=== PATIENT | female | born 1975 | race Caucasian/White ===

== ENCOUNTER 2016-09-06 05:06 | Day surgery (SDC) | payer MEDICAID ==
[~2016-09-06] VITALS: Ht 157.5 cm; Wt 84.8 kg
[~2016-09-06 05:06] MED LIST: FLAGYL500 MG PO; HYDROCHLOROTHIA25 MG PO; HYDROCODONE-APA1 TAB PO; IBUPROFEN600 MG PO; LEVAQUIN500 MG PO; OMEPRAZOLE20 M1 PO; PERCOCET 10/3251 TA1 PO; PRINIVIL20 MG PO; PROAIR HFA8.5 GM INH; TENORMIN25 MG PO; XELODA500 MG PO; ZESTRIL20 MG PO; ZOFRAN ODT4 MG/UDTAB PO
[2016-09-06 06:03] VITALS: BP 110/72; Ht 157.5 cm; Wt 84.8 kg
[2016-09-06 06:07] LABS: BASOPHILS 0.4 % (0.0-2.0); EOSINOPHILS 3.4 % (0-7); HEMATOCRIT 23.2 % (36.0-48.0); IMMATURE GRANULOCYTES 1.2 % (0-5); LYMPHOCYTES 14.2 % (15-50); MCH 35.4 pg (26.0-34.0); MCHC 31.9 g/dL (31.0-37.0); MEAN PLATELET VOLUME 10.7 fL (7.4-10.4); MONOCYTES 5.6 % (2-11); NEUTROPHILS 75.2 % (40-80); RBC 2.09 10x6/uL (4.00-5.40); RDW 22.5 % (11.5-14.5); WBC 9.2 10x3/uL (4.8-10.8)
[2016-09-06 06:23] LABS: HEMOGLOBIN 7.4 g/dL (12-16); PLATELET COUNT 342 10x3/uL (130-400)
--- NOTE | 2016-09-06 06:36 | NUR ---
0620-critical hgb of 7.4 called to OPS called OR to let them know and dr walters made aware, no new orders received
[2016-09-06 06:39] LABS: APTT 36.4 SECONDS (22.8-39.4); INR 1.1 (0.85-1.17); PROTIME 14.1 SECONDS (11.6-15.0)
[2016-09-06 06:40] LABS: ANION GAP 17.4 mmol/L (8-16); CALCIUM 8.4 mg/dL (8.5-10.1); CARBON DIOXIDE 24.6 mmol/L (21.0-32.0); CREATININE - SERUM 1.1 mg/dL (0.6-1.3)
[2016-09-06] MEDS ORDERED: PERCOCET 10/3251 TA1 PO (08:17)
--- NOTE | 2016-09-06 11:52 | NUR ---
1145-DISCHAGE INSTRUCTIONS GIVEN WITH WRITTEN INSTRUCTIONS. PT. ESCORTED WHEELCHAIR TO PERSONAL CAR, LEFT WITH FAMILY DRIVING.
--- NOTE | 2016-10-04 14:51 | OP ---
PATIENT NAME: PETER STACY MEDICAL RECORD: [id number] :75 LOCATION:D.OPS ADMISSION DATE: SURGEON: CHARLOTTE ACEVEDO MD DATE OF OPERATION: 09/06/2016 PREOPERATIVE DIAGNOSES: 1. Metastatic breast cancer. 2. Tobacco dependent syndrome. 3. Hypertension. POSTOPERATIVE DIAGNOSES: 1. Metastatic breast cancer. 2. Tobacco dependent syndrome. 3. Hypertension. PROCEDURES: 1. Left subclavian vein port placement. 2. Fluoroscopic interpretation. SURGEON: Charlotte Acevedo MD. REPORT OF PROCEDURE: The patient's left chest was prepped and draped in sterile fashion and needle was used to cannulate the left subclavian vein. The guidewire was advanced with ease. Fluoro was used to note that the wire was in good position in the venous system. A skin incision was made on the left superior lateral chest and a subcutaneous pouch was made overlying the pectoral fascia. The catheter was tunneled between this pouch and the wire exit site. The port was then sutured to the pectoral fascia using interrupted 2-0 Prolene times 2. The catheter was cut with a beveled tip at 28 cm. The dilator trocar device was then placed over the wire and the wire and dilator were removed. The catheter tip was advanced through the trocar with ease and the trocar was removed. The fluoro was used to note that the catheter tip was resting in good position in the superior vena cava. The catheter aspirated nonpulsatile dark blood and flushed easily with heparinized saline. The subcutaneous tissues were reapproximated with interrupted 3-0 Vicryl and the skin was closed with running subcutaneous 5-0 Monocryl. COMPLICATIONS: None. CONDITION: Stable. ANESTHESIA: General endotracheal. BLOOD LOSS: Minimal. TRANSINT:[id number] Voice Confirmation ID: [id number] DOCUMENT ID: [id number] OPERATIVE REPORT [id number] PETER STACY CHARLOTTE ACEVEDO MD at 1451 CC: LOUIS WALTON MD [id number] DICTATION DATE: 09/06/16 0821 ORDER CALLER: 09/06/16 0926 [facility] 09/06/[address] [address]
== END 2016-09-06 11:45 | disposition home or self-care (01) ==
LOC: D.OPS 05:06 → D.PAN 07:30 → D.OPS 10:00
PROVIDERS: Anesthesiology; Surgery
DX: C50.919 Malignant neoplasm of unspecified site of unspecified female breast (principal); C79.9 Secondary malignant neoplasm of unspecified site; F17.200 Nicotine dependence, unspecified, uncomplicated; I10 Essential (primary) hypertension

== ENCOUNTER 2016-10-25 11:08 | Outpatient (CLI) | payer MEDICAID ==
[~2016-10-25] VITALS: Ht 157.5 cm; Wt 73.2 kg
[2016-10-25] MEDS ORDERED: NEURONTIN 300300 MG PO (11:10)
[2016-10-25 12:02] VITALS: BP 86/51; Ht 157.5 cm; Wt 73.2 kg
--- NOTE | 2016-10-25 19:19 | NUR ---
PORT FLUSHED WITH HEPRIN AND SALINE, NEEDLE REMOVED
== END 2016-10-25 19:00 | disposition home or self-care (01) ==
LOC: D.OPS 11:08
DX: R79.89 Other specified abnormal findings of blood chemistry (principal)

== ENCOUNTER 2016-11-01 11:40 | Inpatient (IN) | payer MEDICAID ==
[~2016-11-01] VITALS: Ht 157.5 cm; Wt 73.0 kg
[~2016-11-01 11:40] MED LIST changes: +NEURONTIN 300300 MG PO
--- NOTE | 2016-11-01 12:16 | NUR ---
PT REC'D TO ROOM VIA WC. ABLE TO AMBULATE FROM WC TO BED WITHOUT DIFFICULTY. SHE IS VERY WEAK HOWEVER. HER SKIN IS HOT, DRY, AND PEELING. 2L O2 APPLIED VIA NC. VSS. AAOX4. NO CURRENT COMPLAINTS OF PAIN. L CHEST PORT UNACCESSED AT THE MOMENT. RAVINDER, LINUX ENGINEER, AT BEDSIDE ATTEMPTING TO DO SO. BED LOW, CALL LIGHT IN REACH, DENIES NEEDS. CPOC.
[2016-11-01 12:18] VITALS: BP 100/57; BMI 29.5
--- NOTE | 2016-11-01 12:26 | NUR ---
PT AOX4 RESP EVEN AND NONLABORED PT ARRIVED VIA WHEELCHAIR WITH FAMILY PRESENT. IV TO LEFT CHEST PORT PATENT AND INTACT AT THIS TIME. PT COMPLAINS OF PAIN OF 9 OF 10 ON NUMERICAL SCALE AT THIS TIME IN BACK. BED AT LOWEST SETTING SRX2 CALL LIGHT WITHIN REACH WILL CONTINUE TO MONITOR. PT HAS SORES ON BACK FROM SCRATCHING.
--- NOTE | 2016-11-01 12:31 | NUR ---
20 GUAGE AND 1INCH NEEDLE PLACED IN L CHEST PORT BY RAVINDER, PRESS FEEDER. UNABLE TO GET BLOOD RETURN, BUT PT STATES THAT YOU CAN NOT DRAW BLOOD FROM HER PORT AND THAT IT'S ALWAYS BEEN LIKE THAT. IVF STARTED PER MAR. BED LOW, CALL LIGHT IN REACH, DENIES NEEDS. CPOC.
--- NOTE | 2016-11-01 12:36 | NUR ---
LEFT INFUSAPORT ACCESSED WITH 20GA X 1 IN NEEDLE. FLUSHED EASILY WITH NO COMPLAINTS. DOES NOT DRAW BLOOD-PT STATES THAT IT DOES NOT DRAW BLOOD EVEN AT OFFICE. DRESSED PER PROTOCOL WITH BIOPATCH AND OCCULSIVE DRESSING. CALL LIGHT IN REACH
[2016-11-01 16:00] VITALS: BP 78/46
--- NOTE | 2016-11-01 16:20 | NUR ---
ALERTED BY DIVINE REYNOSO, THAT BP WAS CURRENTLY 78/46. BP RECHECKED AND WAS 100/57. AREA AROUND L CHEST PORT EDEMATOUS. PORT DEACCESSED AND EXPRESSED A SMALL AMOUNT OF SEROUS FLUID. PRESSURE AND DRESSING APPLIED. PARISH GIBBONS IV ACCESS NURSE, CALLED AND AT BEDSIDE.
--- NOTE | 2016-11-01 16:36 | NUR ---
SHAI, RN IV ACCESS NURSE, STATED THAT THE PT WAS TOO EDMATOUS AND TENDER TO TRY AND REACCESS PORT CURRENTLY. X2 ATTEMPT FOR PERIPHERAL ACCESS. UNSUCCESSFUL. EXPLAINED TO PT THAT I WOULD GIVE HER A BREAK AND LET HER REST BEFORE TRYING AGAIN, BUT WE WOULD NEED ACCESS FOR IVF. PT STATES SHE UNDERSTANDS AND APPRECIATES ME LETTING HER WAIT. BED LOW, CALL LIGHT IN REACH, DENIES NEEDS. CPOC.
--- NOTE | 2016-11-01 17:42 | NUR ---
20GUAGE IV INSERTED INTO LEFT UPPER ARM. X1 ATTEMPT. IV INFUSING. BED LOW, CALL LIGHT IN REACH, DENIES NEEDS. CPOC.
[2016-11-01 19:21] LABS: CALCIUM 8.2 mg/dL (8.5-10.1); CARBON DIOXIDE 19.8 mmol/L (21.0-32.0); CREATININE - SERUM 1.8 mg/dL (0.6-1.3); POTASSIUM - SERUM 4.8 mmol/L (3.5-5.1)
[2016-11-01 20:00] VITALS: BP 104/58
--- NOTE | 2016-11-01 23:15 | NUR ---
LAB CALLED TO CONFIRM BLOOD IS READY.
--- NOTE | 2016-11-02 02:15 | NUR ---
WALKED INTO THE PATIENT'S ROOM AFTER HEARING THE PATIENT YELLING "HELP". THE PATIENT STATED THAT SHE "HAD A DIZZY SPELL AND FELL". THE PATIENT WAS SITTING IN THE FLOOR 1/2 WAY INTO THE SHOWER. SHE STATED THAT SHE HIT HER HEAD WHEN SHE FELL BACK INTO THE SHOWER. THE PATIENT HAS A SMALL RED DAYA ON THE BACK OF HER HEAD. PARISH MARTINEZ AND I ASSISTED THE PATIENT TO HER FEET AND THEN ONTO THE TOILET. AFTER, WE ASSISTED THE PATIENT BACK TO HER BED. THE PATIENT'S VITALS ARE STABLE. THE PATIENT IS ALERT AND ORIENTED. THE PATIENT'S BED IS IN THE LOWEST POSITION, HER CALL LIGHT IS WITHIN REACH, AND HER BED ALARM IS ON. I EXPLAINED TO THE PATIENT THAT HER BED ALARM IS ON AND THAT SHE NEEDS TO PRESS HER CALL LIGHT AND WE WILL ASSIST HER TO THE RESTROOM. THE PATIENT VERBALIZES UNDERSTANDING. I ENCOURAGED THE PATIENT TO CALL IF SHE HAS NEEDS.
--- NOTE | 2016-11-02 02:30 | NUR ---
I PAGED DR. WALKER (SALESPERSON SURGICAL APPLIANCES FOR DR. WALTON) TO NOTIFY HER THAT THE PATIENT HAD FALLEN IN THE BATHROOM. I ALSO INFORMED DR. WALKER THAT THE PATIENT IS ALERT AND ORIENTED.
--- NOTE | 2016-11-02 07:15 | NUR ---
REPORT RECEIVED FROM CONTENT WRITER NURSE. CALL LIGHT IN REACH.
[2016-11-02 07:16] LABS: ANION GAP 16.1 mmol/L (8-16); CALCIUM 8.2 mg/dL (8.5-10.1); CREATININE - SERUM 1.4 mg/dL (0.6-1.3); POTASSIUM - SERUM 4.1 mmol/L (3.5-5.1)
--- NOTE | 2016-11-02 07:18 | NUR ---
LEFT A MESSAGE FOR CAROLE () TO CALL MONSERRAT OR RYANNE IN REGARDS TO PETER.
[2016-11-02 08:06] VITALS: BP 83/47
--- NOTE | 2016-11-02 08:20 | NUR ---
UPON ENTERING ROOM PT ASLEEP IN SUPINE POSITION, NO VISABLE SIGNS OF PAIN OR DISCOMFORT NOTED. BED IN LOW POSITION AND CALL LIGHT WITHIN REACH. WILL CONTINUE TO MONITOR.
--- NOTE | 2016-11-02 10:07 | NUR ---
ASSESSMENT COMPLETED. DENIES NEEDS AT THIS TIME. CALL LIGHT IN REACH. WILL CONTINUE WITH PLAN OF CARE.
--- NOTE | 2016-11-02 10:56 | NUR ---
Patient Name: PETER STACY Admission Status: Elective Accout number: [id number] Admission Date: 11-01-2016 : 1975 Admission Diagnosis: Attending: JADA Current LOS: 1 Anticipated DC Date: Planned Disposition: Home with Home Health Primary Insurance: [facility] [employer] Discharge Planning Comments: CM MET WITH PATIENT AND FAMILY REGARDING D/C NEEDS AND PLANS. PATIENT STATED SHE LIVES WITH HER SPOUSE (CAROLE) AND HE WILL DRIVE HER HOME AT DISCHARGE. PATIENT STATED SHE HAS 4 STEPS W/RAILS TO ENTER HER HOME AND NO STAIRS INSIDE. PATIENTS PCP IS DR. RONQUILLO AND PHARMACY IS [facility] [address]. PATIENT HAS BEEN INDEPENDENT WITH HER CARE IN THE PAST. PATIENT REQUESTED HOME HEALTH/PT AND SIGNED THE [facility]AM FORM WITH SERA. CM WILL CONTINUE TO FOLLOW PATIENT WITH D/C NEEDS AND PLANS. PCP [facility] ([facility]) [phone] CAROLE ([phone]) SPOUSE Rolled Glass Crosscutter: Apurva Hendricks How many steps to enter\exit or inside your home? 4 W/RAILS 0 * PCP DR. RONQUILLO 0 * Pharmacy [facility] [address] 0 * Preadmission Environment Home with Family 0 * ADLs Partial Dependent 0 * Partial ADLs (Assistance needed) Ambulation Bathing Dressing Transfers 0 * Equipment None 0 * List name and contact numbers for known caregivers / representatives who currently or will assist patient after discharge: CAROLE (SPOUSE) [phone] 0 * Community resources currently utilized None 0 * Additional services required to return to the preadmission environment? Yes 0 * Can the patient safely return to the preadmission environment? Yes 0 * Has this patient been hospitalized within the prior 30 days at any hospital? No 0 Grand Total: 0
--- NOTE | 2016-11-02 11:15 | NUR ---
MORPHINE SIVP FOR C/O PAIN.
[2016-11-02 12:48] VITALS: BP 91/55
--- NOTE | 2016-11-02 13:22 | NUR ---
FAMILY IN ROOM. NO NEEDS VOICED AT THIS TIME. CALL LIGHT IN REACH.
[2016-11-02 14:13] VITALS: Ht 157.5 cm; Wt 73.0 kg
--- NOTE | 2016-11-02 14:32 | NUR ---
REQUESTING PAIN MEDS BUT TOO SOON FOR ADMINISTRATION.
--- NOTE | 2016-11-02 15:27 | NUR ---
C/O PAIN OF 10 SO MORPHINE 6 MG SIVP. CALL LIGHT IN REACH.
[2016-11-02 16:02] VITALS: BP 81/46
--- NOTE | 2016-11-02 17:20 | NUR ---
RESTING WITH EYES CLOSED. RESP EVEN AND UNLABORED. CALL LIGHT IN REACH.
--- NOTE | 2016-11-02 19:20 | NUR ---
PATIENT RESTING IN BED WITH FAMILY AT BEDSIDE. PATIENT REQUESTED PEPCID. I INFORMED THE PATIENT THAT THE DOCTOR HAS BEEN PAGED BY DOREEN PEARL. PATIENT DENIES OTHER NEEDS AT THIS TIME. BED IN LOWEST POSITION, CALL LIGHT WITHIN REACH, AND BED ALARM ON. ENCOURAGED THE PATIENT TO CALL IF SHE HAS FURTHER NEEDS.
[2016-11-02 20:00] VITALS: BP 84/45
[2016-11-03] VITALS (20 sets, daily range): BP systolic 74–123; BP diastolic 34–84
--- NOTE | 2016-11-03 01:30 | NUR ---
PATIENT ACCIDENTALLY PULLED HER IV OUT WHILE USING THE RESTROOM. PARISH ANDRE RESITED THE IV IN THE PATIENT'S RIGHT WRIST ON THE FIRST ATTEMPT WITH A 22G.
[2016-11-03 05:54] LABS: BASOPHILS 0.2 % (0-2); EOSINOPHILS 0.4 % (0-7); HEMATOCRIT 30.5 % (36.0-48.0); HEMOGLOBIN 10.2 g/dL (12-16); IMMATURE GRANULOCYTES 0.6 % (0-5); LYMPHOCYTES 12.4 % (15-50); MCHC 33.4 g/dL (31.0-37.0); MCV 101.7 fL (80.0-100.0); MEAN PLATELET VOLUME 10.8 fL (7.4-10.4); MONOCYTES 6.7 % (2-11); NEUTROPHILS 79.7 % (40-80); RDW 24.3 % (11.5-14.5); WBC 10.9 10x3/uL (4.8-10.8)
[2016-11-03 06:08] LABS: PLATELET COUNT 112 10x3/uL (130-400)
[2016-11-03 06:25] LABS: ANION GAP 15.2 mmol/L (8-16); CALCIUM 8.1 mg/dL (8.5-10.1); CARBON DIOXIDE 23.7 mmol/L (21.0-32.0); CREATININE - SERUM 1.2 mg/dL (0.6-1.3); POTASSIUM - SERUM 3.9 mmol/L (3.5-5.1); PROTEIN - SERUM 5.6 g/dL (6.4-8.2)
--- NOTE | 2016-11-03 07:30 | NUR ---
AWAKE AND ALERT AT THIS TIME. IV TO RIGHT WRIST PATENT AND INFUSING WITHOUT S/S OF INFILTRATION. CHEST PORT TO LEFT CHEST WALL NOT ACCESSED. EXPLAINED TO PT THAT HER CHEST PORT WOULD HAVE TO BE ACCESSED FOR CHEMO ADMINISTRATION. PT VERBALIZED UNDERSTANDING. PT ALSO STATES, "I JUST DO NOT FEEL WELL TODAY. I HAVE MY GOOD DAYS AND MY BAD DAYS." BED ALARM REMAINS ON WITH SRX2 AND BED IN LOWEST POSITIN WITH WHEELS LOCKED. CALL LIGHT IN REACH, WILL CONTINUE WITH PLAN OF CARE.
--- NOTE | 2016-11-03 08:08 | NUR ---
PORT ACCESS-LEFT CHEST WALL INFUSAPORT ACCESSED AFTER STERILE PREP WITH CHCLORAPREP. 1 1/2 NEEDLE INITIALLY USED, NEEDLE PROTRUDING FROM CHEST OVER 1/2 INCH, FLUSHED AND REMOVED. REACCESSED WITH 1 INCH BELTRAN, FLUSHES EASILY, NO BLOOD RETURN. PATIENT STATES SHE HAS " NEVER HAD BLOOD RETURN FROM PORT.' SITE DRESSED WITH STATLOCK, BIOPATCH AND TEGADERM DRESSING. SHAI RUFF RN
--- NOTE | 2016-11-03 10:10 | NUR ---
PRE-MEDICATIONS ADMINISTERED FOR CHEMO ADMINISTRATION. PT STATES THAT SHE CAN TASTE THE SALINE WHEN HER LEFT CHEST PORT IS FLUSHED SHE STATES THAT HER PORT NEVER DRAWS BACK BLOOD. CALL LIGHT IN REACH AND YELLOW CHEMO CONTAINER AT BEDSIDE. BED ALARM ON. WILL CONTINUE WITH PLAN OF CARE.
--- NOTE | 2016-11-03 10:55 | NUR ---
TAXOL CHEMOTHERAPY INITIATED PER ORDER AND WITNESSED BY PARISH CASTELLON. LEFT CHEST PORT REMAINS PATENT WITH 19G 1 INCH BELTRAN NEEDLE. VITAL SIGNS TEMP 97.3 TEMPORALLY, BP 81/44, PULSE 95 RESPIRATIONS 97% ON ROOM AIR. PT STATES THAT SHE CAN TASTE SALINE FLUSH WHEN LEFT CHEST PORT IS FLUSHED DUE TO PORT UNABLE TO DRAW BLOOD RETURN.
--- NOTE | 2016-11-03 11:15 | NUR ---
VITAL SIGNS REMAIN STABLE WITH CHEMO ADMINISTRATION. PORT FLUSHED WITH NORMAL SALINE AND PT REPORTED THAT SHE, "TASTED IT." RESUMED IV CHEMO INFUSION PER ORDER.
--- NOTE | 2016-11-03 11:30 | NUR ---
VITAL SIGNS REMAIN STABLE. FAMILT AT PT'S BEDSIDE. PORT REMAINS PATENT WITH BELTRAN NEEDLE INTACT. BED ALARM ON AND CALL LIGHT IN REACH, WILL CONTINUE WITH PLAN OF CARE.
--- NOTE | 2016-11-03 11:45 | NUR ---
VITAL SIGNS REMAIN STABLE. PORT SITE REMAINS PATENT WITH PT ABLE TO TASTE SALINE WHEN IT IS FLUSHED. CALL LIGHT IN REACH, WILL CONTINUE WITH PLAN OF CARE.
--- NOTE | 2016-11-03 12:30 | NUR ---
AWAKE AND ALERT WITH FAMILY AT BEDSIDE. ASSISTED PT TO BATHROOM WHERE SHE VOIDED DARK, CONCENTRATED URINE WITHOUT DIFFICULTY. ASSISTED BACK TO BED WITH BED ALARM ON. WILL CONTINUE WITH PLAN OF CARE.
--- NOTE | 2016-11-03 13:40 | NUR ---
TAXOL INFUSION COMPLETE AT THIS TIME. VITAL SIGNS REMAIN STABLE. FAMILY AT BEDSIDE. WILL CONTINUE WITH PLAN OF CARE.
--- NOTE | 2016-11-03 13:50 | NUR ---
IV INFUSION OF GEMZAR STARTED AT THIS TIME AND WITNESSED BY PARISH RICE. LEFT CHEST PORT REMAINS PATENT AND PT IS ABLE TO TASTE AND SMELL SALINE FLUSH. FAMILY REMAINS AT BEDSIDE. CALL LIGHT IN REACH, WILL CONTINUE WITH PLAN OF CARE.
--- NOTE | 2016-11-03 14:20 | NUR ---
IV GEMZAR TRANSFUSION COMPLETE AT THIS TIME. FAMILY REMAINS AT BEDSIDE. CALL LIGHT IN REACH, WILL CONTINUE WITH PLAN OF CARE.
[2016-11-04] VITALS: BP 94/59
--- NOTE | 2016-11-04 03:38 | NUR ---
ASSESSED AT THE BEGINNING OF THE SHIFT. PT IS ALERT AND ORIENTED, ABLE TO VERBALIZE NEEDS. SHE SLEPT QUIET A BIT DURING THE FIRST OF THE SHIFT. SHE CALLS FOR ASSIST TO GO TO THE BATHROOM AND IS ABLE TO TURN AND REPOSITION FOR COMFORT AND SKIN CARE. THERE IS A PORT FOR HEMO AND SHE HAS RECEIVED PAIN MEDS ORDERED AND ASKED FOR. THE BED IS LOW, RAILS UP X'S 2 WITH THE CALL LIGHT AT HAND AND WHITE BED ALARM.
[2016-11-04 04:00] VITALS: BP 102/50
--- NOTE | 2016-11-04 08:05 | NUR ---
AWAKE AND ALERT AT THIS TIME. PAIN 8/10, BUT PAIN MEDICATION NOT AVAILABLE UNTIL 9:30AM. BED ALARM ON AND CALL LIGHT IN REACH, WILL CONTINUE WITH PLAN OF CARE.
--- NOTE | 2016-11-04 09:07 | NUR ---
PRN MORPHINE ADMINISTERED AT THIS TIME FOR PAIN 9/10 GENERALIZED. BED ALARM REMAINS ON. CALL LIGHT IN REACH, WILL CONTINUE WITH PLAN OF CARE.
[2016-11-04 09:19] VITALS: BP 91/60
--- NOTE | 2016-11-04 12:09 | NUR ---
NUTRITION MONITORING & EVAL CHART REVIEWED, PT VISIT. TOLERATING REG DIET, ~25% INTAKE BREAKFAST. WILL HONOR FOOD PREFERENCES, MONITOR PO INTAKE. RD FOLLOWING
[2016-11-04 12:45] VITALS: BP 104/64
--- NOTE | 2016-11-04 13:09 | NUR ---
PRN MORPHINE ADMINISTERED PER ORDER FOR PAIN 02/12. PT IS EXPERIENCING EXTENSIVE NAUSEA WITHOUT EMESIS AND DOES NOT HAVE AN APPETITE. EXPLAINED TO PT THAT THIS COULD BE DUE TO HER CHEMO TREATMENT THAT SHE RECEIVED YESTERDAY. PT VERBALIZED UNDERSTANDING. CALL LIGHT IN REACH, WILL CONTINUE WITH PLAN OF CARE.
[2016-11-04 16:45] VITALS: BP 90/62
[2016-11-04 20:00] VITALS: BP 98/65
--- NOTE | 2016-11-05 03:38 | NUR ---
ASSESSED AT THE BEGINNING OF THE SHIFT. LOTS OF FAMILY WERE IN THE ROOM AND SHE WAS TIRED. SHE HAS BEEN COMPLAINING ABOUT THE FISH MOST OF THE SHIFT. IT IS DRAINING DARK BROWN URINE AND SHE STATED IT MADE HER FEEL LIKE SHE NEEDED TO VOID. WE HAVE BEEN MAKING SURE THE CATH IS DRAINING WELL AND IT IS. SHE SEEMS TO BE HURING MORE AND JUST PLAIN FEELING BAD TONIGHT. SHE IS GETTING HER PAIN MEDS ORDERED BUT IT IS NOT HOLDING HER. WILL DISCUSS WITH AM NURSE ABOUT ASKING MD FOR SOMETHING FOR ANXIETY. THE BED IS LOW, RAILS UP X'S 2 WITH THE CALL LIGHT AT HAND.
[2016-11-05 04:00] VITALS: BP 106/62
[2016-11-05 05:47] LABS: ALBUMIN 1.9 g/dL (3.4-5.0); BILIRUBIN - TOTAL 8.9 mg/dL (0.2-1.3); CALCIUM 7.6 mg/dL (8.5-10.1); CARBON DIOXIDE 28.7 mmol/L (21.0-32.0); CREATININE - SERUM 1.4 mg/dL (0.6-1.3); PROTEIN - SERUM 5.6 g/dL (6.4-8.2)
[2016-11-05 06:00] LABS: ANION GAP 15.9 mmol/L (8-16); POTASSIUM - SERUM 4.6 mmol/L (3.5-5.1)
--- NOTE | 2016-11-05 07:30 | NUR ---
ASSESSMENT COMPLETE. L PORT PATENT. SODIUM BICARB INFUSING AT 85 CC/HR VIA PUMP. REFUSING TO WEAR SCD'S. SCABBED AREAS NOTED TO BACK. FISH PATENT DRAINING BRIAN COLORED URINE. COMPLAINING OF ABDOMINAL PAIN. REFUSING TO TAKE ANYMORE MORPHINE. STATES THAT MORPHINE IS MAKING HER SHAKY AND FEELING FUNNY. BED ALARM IN USE.
[2016-11-05 07:49] VITALS: BP 107/64
--- NOTE | 2016-11-05 09:00 | NUR ---
BEGAN VOMITING CLEAR EMESIS AFTER TAKING PO PEPCID. TOO SOON TO GIVE NEXT DOSE OF ZOFRAN.
--- NOTE | 2016-11-05 10:30 | NUR ---
FISH CATHETER REMOVED. CATHETER TIP INTACT. WANTING TO GO TO BATHROOM TO TRY TO VOID. COMPLAINING OF DIZZINESS WITH STANDING. PLACED ON BEDSIDE COMMODE WITH STAFF AT BEDSIDE.
[2016-11-05 12:18] VITALS: BP 91/56
--- NOTE | 2016-11-05 12:38 | NUR ---
COMPLAINING OF ABDOMOINAL PAIN. DILAUDID 1 MG AND ZOFRAN 8 MG GIVEN SLOW IVP. VOIDED 100 CC'S OF BRIAN COLORED URINE. COMPLAINING OF BURNING WITH URINATION.
--- NOTE | 2016-11-05 13:30 | NUR ---
VISITING WITH FAMILY. RESTING QUIETLY IN BED AT THIS TIME.
[2016-11-05 14:43] VITALS: BP 102/68
--- NOTE | 2016-11-05 15:00 | NUR ---
COMPLAINING OF FEELING JITTERY AFTER DILAUDID. BED ALARM IN USE. NO CHANGES NOTED AT PRESENT.
--- NOTE | 2016-11-05 17:30 | NUR ---
RESTING QUIETLY WITH EYES CLOSED. RESP EVEN,NONLABORED. FAMILY AT BEDSIDE.
--- NOTE | 2016-11-05 19:00 | NUR ---
PATIENT SLEEPING ON LEFT SIDE. HOB 10 DEGREES. RR EVEN AND UNLABORED. 0 S/S OF DISTRESS. LEFT PORT PATENT WITH DRESSING CDI. B/A ON. FAMILY AT BEDSIDE.
[2016-11-05 20:00] VITALS: BP 117/79
--- NOTE | 2016-11-05 22:05 | NUR ---
PATIENT STATED SHE IS TOO NAUSEATED TO TAKE PO PEPCID. RETURNED PEPCID AND GAVE ZOFRAN PER ORDER.
[2016-11-06] VITALS: BP 98/59
--- NOTE | 2016-11-06 00:30 | NUR ---
PATIENT KEEPS STATING THAT SHE DOES NOT "FEEL GOOD." SHE HAS NOT WANTED TO TAKE PAIN MEDICATION BECAUSE SHE DOES "NOT LIKE HOW IT MAKES HER FEEL," AND "SHE CAN'T HANDLE IT." EXPLAINED TO PATIENT THAT IT MIGHT EASE SOME OF HER DISCOMFORT AND HELP HER REST. SHE AGREED TO TRY IT. DILAUDID GIVEN. WILL REASSESS.
--- NOTE | 2016-11-06 02:54 | NUR ---
PATIENT SLEEPING WITH NO DISTRESS NOTED. CALL LIGHT WITHIN REACH.
[2016-11-06 04:00] VITALS: BP 96/45
--- NOTE | 2016-11-06 04:30 | NUR ---
PATIENT C/O NAUSEA. ZOFRAN GIVEN PER ORDER.
--- NOTE | 2016-11-06 07:15 | NUR ---
RESTING QUIETLY WITH EYES CLOSED. RESP EVEN,NONLABORED.
--- NOTE | 2016-11-06 08:00 | NUR ---
ASSESSMEMT COMPLETE. L PORT PATENT. D5W INFUSING AT 85 CC/HR VIA PUMP. COLOR JAUNDICED. COMPLAINING OF "NOT FEELING GOOD AT ALL." GENERALIZED WEAKNESS. GENERALIZED EDEMA. SCABBED ABRASIONS NOTED TO BACK. BED ALARM IN USE.
[2016-11-06 08:23] VITALS: BP 97/53
[2016-11-06 10:23] LABS: BASOPHILS 0.1 % (0-2); EOSINOPHILS 0 % (0-7); HEMATOCRIT 31.8 % (36.0-48.0); HEMOGLOBIN 10.6 g/dL (12-16); IMMATURE GRANULOCYTES 0.3 % (0-5); LYMPHOCYTES 5.3 % (15-50); MCH 33.9 pg (26.0-34.0); MCHC 33.3 g/dL (31.0-37.0); MCV 101.6 fL (80.0-100.0); MEAN PLATELET VOLUME 12.2 fL (7.4-10.4); MONOCYTES 0.6 % (2-11); NEUTROPHILS 93.7 % (40-80); RBC 3.13 10x6/uL (4.00-5.40); RDW 23.1 % (11.5-14.5); WBC 10.7 10x3/uL (4.8-10.8)
[2016-11-06 10:25] LABS: PLATELET COUNT 62 10x3/uL (130-400)
[2016-11-06 10:32] LABS: ALBUMIN 1.7 g/dL (3.4-5.0); BILIRUBIN - TOTAL 9.96 mg/dL (0.2-1.3); CALCIUM 7.6 mg/dL (8.5-10.1); CARBON DIOXIDE 27.8 mmol/L (21.0-32.0); CREATININE - SERUM 1.7 mg/dL (0.6-1.3); PROTEIN - SERUM 5.2 g/dL (6.4-8.2)
[2016-11-06 10:39] LABS: ANION GAP 15.2 mmol/L (8-16)
--- NOTE | 2016-11-06 10:50 | NUR ---
DR WALTON NOTIFIED OF CRITICAL CHLORIDE LEVEL OF 84. PATIENT STATES SHE IS UNABLE TO TAKE DULCOLAX TABLETS. OK TO TRY SUPP PER DR WALTON.
[2016-11-06 11:01] LABS: PLATELET ESTIMATE DECREASED
[2016-11-06 11:02] LABS: ANISOCYTOSIS OCC
--- NOTE | 2016-11-06 12:45 | NUR ---
LARGE SOFT BM RESULTED FROM DULCOLAX SUPP.
[2016-11-06 12:55] VITALS: BP 103/71
--- NOTE | 2016-11-06 14:00 | NUR ---
NO CHANGES NOTED AT PRESENT.
[2016-11-06 15:17] VITALS: BP 91/55
--- NOTE | 2016-11-06 15:20 | NUR ---
COMPLAINING OF ABDOMINAL AND BACK PAIN. DILAUDID GIVEN SLOW IVP. FAMILY AT BEDSIDE.
--- NOTE | 2016-11-06 17:17 | NUR ---
RESTING QUIETLY WITH EYES CLOSED ON RIGHT SIDE. RESP EVEN,NONLABORED. BED ALARM IN USE.
--- NOTE | 2016-11-06 19:00 | NUR ---
PATIENT SLEEPING ON LEFT SIDE. HOB 10 DEGREES. RR EVEN AND UNLABORED. 0 S/S OF DISTRESS. LEFT PORT PATENT WITH DRESSING CDI. B/A ON. SRX2. BED LOW. CALL LIGHT WITHIN REACH.
--- NOTE | 2016-11-06 21:55 | NUR ---
PEPCID NOT GIVEN BECAUSE PATIENT REFUSES TO TAKE PO MEDICATIONS. ZOFRAN AND DILAUDID GIVEN PER ORDER.
[2016-11-07] VITALS: BP 93/57
--- NOTE | 2016-11-07 02:05 | NUR ---
PATIENT HAD INCONTINENT EPISODE OF BLADDER. LINENS AND GOWN CHANGED. DILAUDID GIVEN FOR PAIN.
[2016-11-07 04:00] VITALS: BP 98/50
--- NOTE | 2016-11-07 04:48 | NUR ---
PATIENT HAS BEEN EXTREMELY RESTLESS ALL NIGHT. SHE HAS NOT SLEPT AND HAS BEEN CONSTANTLY GETTING OUT OF BED. PAIN MEDICATION AND ZOFRAN HAVE BEEN GIVEN EVERY TIME THEY ARE DUE BUT SHE CONTINUES TO MOAN THAT SHE DOES NOT FEEL GOOD. SPOKE WITH DR. WALTON. CHANGED DILAUDID TO 3MG Q3H PRN AND ADMINISTERED 0.5MG ATIVAN IV PER TELEPHONE ORDER.
--- NOTE | 2016-11-07 06:30 | NUR ---
PATIENT RESTING WELL AFTER ATIVAN ADMINISTRATION BUT O2 SATS 84%. PUT 2LNC ON PATIENT. O2 SATS NOW 96%.
--- NOTE | 2016-11-07 07:05 | NUR ---
PATIENT RECEIVED IN RIGHT LATERAL POSITION RESTING WITH EYES CLOSED. RESPIRATIONS EVEN AND UNLABORED. SIDE RAILS UP X2. BED IN LOW POSITION. CALL LIGHT IN REACH. BED ALARM ON.
--- NOTE | 2016-11-07 07:26 | NUR ---
PATIENT IN RIGHT LATERAL POSITION CRYING OUT "HELP ME." MERLYN, NURSE AID AT BEDSIDE. RATES PAIN 10/10. 3MG DILAUDID ADMINISTERED SLOW IVP. WELL TOLERATED. NO FURTHER NEEDS VOICED. SIDE RAILS UP X2. BED IN LOW POSITION. CALL LIGHT IN REACH. BED ALARM ON.
[2016-11-07 07:45] VITALS: BP 101/60
--- NOTE | 2016-11-07 09:30 | NUR ---
PATIENT IN LEFT LATERAL POSITION. NO SIGNS OF DISTRESS NOTED. STATES "HELP ME, I DON'T FEEL GOOD." WHEN ASKED WHAT IS WRONG PATIENT REPLIES "I DON'T KNOW, I JUST DON'T FEEL GOOD I HURT." EXPLAINED TO PATIENT IT WAS TOO SOON FOR PAIN MEDICATION, BUT WOULD BE ADMINISTERED WHEN TIME. STATES UNDESTANDING. SIDE RAILS UP X2. BED IN LOW POSITION. CALL LIGHT IN REACH. BED ALARM ON.
[2016-11-07 10:00] LABS: HEMATOCRIT 33.8 % (36.0-48.0); HEMOGLOBIN 11.3 g/dL (12-16); MCH 34.1 pg (26.0-34.0); MCHC 33.4 g/dL (31.0-37.0); MCV 102.1 fL (80.0-100.0); RBC 3.31 10x6/uL (4.00-5.40); RDW 22.8 % (11.5-14.5)
[2016-11-07 10:08] LABS: WBC 2.7 10x3/uL (4.8-10.8)
[2016-11-07 10:10] LABS: PLATELET COUNT 46 10x3/uL (130-400)
[2016-11-07 10:25] LABS: ALBUMIN 1.7 g/dL (3.4-5.0); BILIRUBIN - TOTAL 11.7 mg/dL (0.2-1.3); CALCIUM 7.7 mg/dL (8.5-10.1); CARBON DIOXIDE 26.6 mmol/L (21.0-32.0); CREATININE - SERUM 1.7 mg/dL (0.6-1.3); POTASSIUM - SERUM 5.1 mmol/L (3.5-5.1); PROTEIN - SERUM 5.3 g/dL (6.4-8.2)
[2016-11-07 10:30] LABS: ANION GAP 16.5 mmol/L (8-16)
--- NOTE | 2016-11-07 10:55 | NUR ---
[facility]ITICAL LAB[facility] CALLED TO DR WALTON BY PAR[facility] ERICKSON
[2016-11-07 11:26] VITALS: BP 101/64
[2016-11-07 11:29] LABS: LYMPHOCYTES 23 % (15-50); MONOCYTES 4 % (2-11); NEUTROPHILS 68 % (40-80); PLATELET ESTIMATE DECREASED
[2016-11-07 11:30] LABS: ANISOCYTOSIS 1+
--- NOTE | 2016-11-07 11:50 | NUR ---
PATIENT IN LEFT LATERAL POSITION RESTING WITH EYES CLOSED. RESPIRATIONS EVEN AND UNLABORED. SIDE RAILS UP X2. BED IN LOW POSITION. CALL LIGHT IN REACH. BED ALARM ON.
--- NOTE | 2016-11-07 15:32 | NUR ---
CALLED DR. WALTON'S OFFICE. SPOKE WITH AVI LUGO AND INFORMED HER PATIENT PAIN IS STILL NOT CONTROLLED. SHE WILL LET DR. WALTON KNOW AND CALL BACK.
--- NOTE | 2016-11-07 16:32 | NUR ---
DEMEROL ADMINISTERED PER PRN ORDER. WELL TOLERATED. FAMILY AT BEDSIDE. SIDE RAILS UP X2. BED IN LOW POSITION. CALL LIGHT IN REACH.
[2016-11-07 16:38] VITALS: BP 107/55
--- NOTE | 2016-11-07 18:00 | NUR ---
FISH CATH PLACED USING STERILE TECHNIQUE BY PARISH RICE. APPROXIMATELY 100CC DARK, BRIAN URINE RETURNED TO COLLECTION BAG.
--- NOTE | 2016-11-07 19:00 | NUR ---
PATIENT AGITATED ROLLING AROUND IN BED. TACHYPNEIC AND REFUSING TO KEEP O2 ON. PATIENT IS CONFUSED AND MOANING. PAIN IS A 10/10 ACCORDING TO THE FLACC SCALE. LEFT PORT IS PATENT WITH DRESSING CDI. FISH IS SECURED WITH STATLOCK AND DRAINING TO GRAVITY. B/A ON. FAMILY AT BEDSIDE. ATIVAN GIVEN BY BONITA NAVARRO RN. WILL REASSESS.
--- NOTE | 2016-11-07 19:19 | NUR ---
PATIENT IN BED VERY RESTLESS AND AGGITATED. ATIVAN ADMINISTERED PER PRN ORDER. FAMILY PRESENT STATES "WE WERE UNDER THE IMPRESSION SHE WOULD HAVE A PAIN DRIP." CALL PLACED TO LAUNCHING PAD MECHANIC FOR DR WALTON.
[2016-11-07 20:00] VITALS: BP 92/54
--- NOTE | 2016-11-07 21:10 | NUR ---
PATIENT RESTED QUIETLY AFTER ATIVAN, BUT NOW IS WAKING UP AND BECOMING AGITATED AGAIN. INITIATED DILAUDID FOOD MIXER PER ORDER. INSTRUCTED FAMILY ON USE.
[2016-11-08] VITALS: BP 88/40
--- NOTE | 2016-11-08 00:30 | NUR ---
FAMILY STATED THAT PATIENT HAS BEEN RESTING WELL WITH THE PAIN MEDICATION UNTIL NOW. SHE IS BECOMING RESTLESS AGAIN. ATIVAN GIVEN PER ORDER.
[2016-11-08 04:00] VITALS: BP 93/45
[2016-11-08 09:03] VITALS: BP 116/43
[2016-11-08 12:39] VITALS: BP 90/37
--- NOTE | 2016-11-08 12:59 | NUR ---
FAMILY REQUESTED TYLENOL FOR ELEVATED TEMP 101. GIVEN 650 MG SUPPOSITORY RECTALLY, WILL MONITOR.
--- NOTE | 2016-11-08 16:17 | NUR ---
PATIENT NOT BREATHING, NO HEART BEAT PER AUSCULTATION.
--- NOTE | 2016-11-08 16:19 | NUR ---
CALLED 'S OFFICE. HIS IT GENERALIST SAID SHE WILL HAVE HIM TO CALL ME.
[2016-11-08 16:46] VITALS: BP 70/30
== END 2016-11-08 16:52 | DRG 640 ==
LOC: D.MS 11:40
PROVIDERS: ADMIT Internal Medicine Hematology & Oncology
DX: E86.0 Dehydration (principal); K72.00 Acute and subacute hepatic failure without coma; C78.7 Secondary malignant neoplasm of liver and intrahepatic bile duct; C77.2 Secondary and unspecified malignant neoplasm of intra-abdominal lymph nodes; N17.9 Acute kidney failure, unspecified; I95.9 Hypotension, unspecified; C50.919 Malignant neoplasm of unspecified site of unspecified female breast; I10 Essential (primary) hypertension; D63.0 Anemia in neoplastic disease